=== PATIENT | male | born 1960 | race Caucasian/White ===

== ENCOUNTER 2018-09-21 09:42 | Outpatient (CLI) | payer OTHER ==
[~2018-09-21] VITALS: Ht 185.4 cm; Wt 49.9 kg
[2018-09-21 10:40] VITALS: BP 125/84
[2018-09-21] MEDS ORDERED: CREON DR 24,001 EACH PO (14:10)
[2018-09-21] MEDS ORDERED: BP MED (14:10)
--- NOTE | 2018-09-21 14:19 | General Progress Note ---
Assessment/Plan Assessment/Plan pancreatic mass ? type pending obtaining records Subjective ROS Limited/Unobtainable: Yes Allergies: Coded Allergies: No Known Allergies (Verified Allergy, Unknown, 03/08/09) Subjective abd pain Objective General Appearance: alert EENT: normal ENT inspection Neck: supple Cardiovascular: normal rate Respiratory/Chest: decreased breath sounds Abdomen: normal bowel sounds, non tender, soft Extremities: non-tender Darin Oshea MD Sep 21, 2018 14:19
[2018-09-22] MEDS ORDERED: ASPIRIN EC81 MG ORAL (07:50)
[2018-09-22] MEDS ORDERED: ENSURE LIQUID237 ML PO (07:50)
[2018-09-22] MEDS ORDERED: ZOFRAN4 M3 ORAL (07:50)
[2018-09-22] MEDS ORDERED: TRAMADOL HCL50 MG ORAL (07:50)
[2018-09-22] MEDS ORDERED: AMLODIPINE BESY10 MG ORAL (07:50)
[2018-09-22] MEDS ORDERED: DICYCLOMINE HCL10 MG PO (07:50)
[2018-09-22] MEDS ORDERED: LOSARTAN POTASS50 MG ORAL (07:50)
== END 2018-09-21 11:42 | disposition home or self-care (01) ==
LOC: PAN 09:42
DX: K86.9 Disease of pancreas, unspecified (principal); R10.9 Unspecified abdominal pain

== ENCOUNTER 2018-10-05 10:38 | Outpatient (CLI) | payer OTHER ==
[~2018-10-05 10:38] MED LIST: AMLODIPINE BESY10 MG ORAL; ASPIRIN EC81 MG ORAL; BP MED; CREON DR 24,001 EACH PO; DICYCLOMINE HCL10 MG PO; ENSURE LIQUID237 ML PO; LOSARTAN POTASS50 MG ORAL; TRAMADOL HCL50 MG ORAL; ZOFRAN4 M3 ORAL
--- NOTE | 2018-10-05 11:18 | General Progress Note ---
Assessment/Plan Problem List: (1) Chronic pancreatitis ICD Codes: K86.1 - Other chronic pancreatitis SNOMED: 351819464 (2) Pancreatic cyst ICD Codes: K86.2 - Cyst of pancreas SNOMED: 61381932 (3) Dilated cbd, acquired ICD Codes: K83.8 - Other specified diseases of biliary tract SNOMED: 438741361 Assessment/Plan needs EUS and FNA of pancreatic cystic lesions needs IGG 4 and abdullahi test on the procedure day cont creon may need ERCP will fu Subjective ROS Limited/Unobtainable: Yes Allergies: Coded Allergies: No Known Allergies (Verified Allergy, Unknown, 03/08/09) Objective General Appearance: alert EENT: normal ENT inspection Neck: supple Cardiovascular: normal rate Respiratory/Chest: lungs clear Abdomen: soft, hypoactive bowel sounds, tender Extremities: non-tender Darin Oshea MD Oct 05, 2018 11:18
[2018-10-05 12:43] VITALS: BP 142/82
== END 2018-10-05 15:27 | disposition home or self-care (01) ==
LOC: PAN 10:38
DX: K86.1 Other chronic pancreatitis (principal); K86.2 Cyst of pancreas; K83.8 Other specified diseases of biliary tract

== ENCOUNTER 2018-10-17 17:44 | Emergency (ER) | payer OTHER ==
[~2018-10-17] VITALS: Ht 185.4 cm; Wt 54.4 kg
--- NOTE | 2018-10-17 18:10 | NUR ---
ED Nurse Note: pt wheelchaired in c/o abd pain on RUQ, pt states he had pain for about 1yr and 7months, states worsen today and couldn't take it anymore came to ED, pt denies n/v/d at this time, pt reports he has hx mass and CA on pacreas, is scheduled for surgery this summer with . HX right ingroin hernia. ERMD at the bedside. Pt AA&ox4, gcs=15, skin warm and dry, resp even and unlabored on RA, noted tenderness on abd RUQ, active BS, pt on wheelchair for weakness but states he can ambulate, VSS, will cont monitor.
[2018-10-17 18:23] VITALS: BP 143/77
[2018-10-17] MEDS ORDERED: HYDROmorphone 1mg/ml Carpuject IM ONE (18:30)
[2018-10-17] MEDS ORDERED: TRAMADOL HCL50 MG ORAL (18:59)
--- NOTE | 2018-10-17 19:03 | NUR ---
ED Nurse Note: report given to ELIOT Jennings and endorsed care.
[2018-10-17 19:05] VITALS: BP 143/77
--- NOTE | 2018-10-17 19:05 | NUR ---
ER DISCHARGE NOTE: Patient is cleared to be discharged per ERMD, pt is aox4, on room air, with stable vital signs. accompanied by family member. pt was given dc and prescription instructions, pt was able to verbalize understanding, pt id band removed. pt is able to ambulate with cane and steady gait. pt took all belongings.
--- NOTE | 2018-10-17 19:56 | Emergency Room Report ---
History of Present Illness General Chief Complaint: Abdominal Pain Source: Patient Present Illness HPI 58-year-old male presents ED for evaluation. Complaining of abdominal pain. States that he has a history of pancreatic cancer and has had prior surgery for this. States that for the last few years he's been having increasing pain is been seen by his GI specialist Dr. Oshea. States that he ran out of his pain medication tramadol. States pain is typical of his normal pain. Dull, 8 out of 10, nonradiating. Denies fevers or chills. Denies chest pain shortness of breath. Denies nausea or vomiting. Denies any diarrhea. No other aggravating relieving factors. Denies any other associated symptoms Allergies: Coded Allergies: HYDROCHLOROTHIAZIDE (Verified Allergy, Unknown, 10/17/18) Patient History Past Medical History: HTN, other - pancreatic cancer Past Surgical History: none Pertinent Family History: none Social History: Denies: smoking, alcohol use, drug use Immunizations: UTD Reviewed Nursing Documentation: PMH: Agreed; PSxH: Agreed Nursing Documentation-PMH Past Medical History: No History, Except For Hx Cardiac Problems: Yes Hx Hypertension: Yes Hx Cancer: Yes Hx Gastrointestinal Problems: Yes Hx Neurological Problems: No Review of Systems All Other Systems: negative except mentioned in HPI Physical Exam Vital Signs Date Time Temp Pulse Resp B/P (MAP) Pulse Ox O2 Delivery O2 Flow Rate FiO2 10/17/18 17:55 98.4 71 16 139/91 98 Room Air Sp02 EP Interpretation: reviewed, normal General Appearance: alert, GCS 15, non-toxic, mild distress Head: normocephalic Eyes: bilateral eye normal inspection, bilateral eye PERRL ENT: normal ENT inspection Neck: normal inspection Respiratory: chest non-tender, lungs clear, normal breath sounds, speaking full sentences Cardiovascular #1: regular rate, rhythm, no edema Gastrointestinal: normal bowel sounds, soft, non-distended, no guarding, no rebound, tenderness - epigastric Rectal: deferred Genitourinary: no CVA tenderness Musculoskeletal: normal inspection Neurologic: alert, oriented x3, responsive, motor strength/tone normal, sensory intact, speech normal Psychiatric: normal inspection Skin: normal inspection Lymphatic: normal inspection Medical Decision Making Diagnostic Impression: Primary Impression: Chronic pancreatitis Qualified Codes: K86.1 - Other chronic pancreatitis ER Course Hospital Course 58-year-old M presents to ED with abdominal pain. h/o pancreatic cancer Differential diagnosis includes-appendicitis, cholecystitis, small bowel obstruction, gastritis, Clinical course Patient placed on stretcher. After initial history, exam reveals a middle-aged male in mild distress. Abdomen is soft but tender. No guarding or rebound. No rigidity. Patient states he does not want lab draw or CT scans at this point. States that he already is being scheduled for surgery. States that he needs to control the pain today until he can see his doctor Given Dilaudid IM here. On reassessment pain is improved. I agree provide him a short course of tramadol Dr oshea made aware. Safe for discharge with close outpatient follow-up I feel this is a highly complex case requiring extensive working including EKG/ Rhythm strip, Xray/CT/US, Blood/urine lab work, repeat exams while in ED, and administration of strong opiates/narcotics for pain control, admission to hospital or close patient follow up. Diagnosis - chronic pancreatitis Stable and discharged to home with Rx Tramadol. Followup with PMD/GI. Return to ED if symptoms recur or worsen Last Vital Signs Date Time Temp Pulse Resp B/P (MAP) Pulse Ox O2 Delivery O2 Flow Rate FiO2 10/17/18 19:05 98.4 70 16 143/77 100 Room Air Status: improved Disposition: HOME, SELF-CARE Condition: Stable Scripts Tramadol Hcl* (ULTRAM*) 50 Mg Tablet 50 MG ORAL Q6H PRN for For Pain, #10 TAB 0 Refills Prov: Lonny Dominguez MD 10/17/18 Referrals: aDrin Oshea MD Patient Instructions: Acute Pancreatitis, [id number] Lonny Dominguez MD Oct 17, 2018 19:56
== END 2018-10-17 19:15 | disposition home or self-care (01) ==
LOC: EMR 19:10
DX: K86.1 Other chronic pancreatitis (principal); Z85.07 Personal history of malignant neoplasm of pancreas; I10 Essential (primary) hypertension; Z88.8 Allergy status to other drugs, medicaments and biological substances
CPT/HCPCS: 96372; 99283; J1170

== ENCOUNTER 2018-11-25 09:49 | Day surgery (SDC) | payer OTHER ==
[~2018-11-25] VITALS: Ht 185.4 cm; Wt 54.4 kg
--- NOTE | 2018-11-25 07:25 | Anethesia Preoperative Eval ---
Anesthesia Pre-op PMH/ROS General Date of Evaluation: November 25, 2018 Time of Evaluation: 07:22 Anesthesiologist: manju ASA Score: ASA 3 Mallampati Score Class I : Soft palate, uvula, fauces, pillars visible Class II: Soft palate, uvula, fauces visible Class III: Soft palate, base of uvula visible Class IV: Only hard plate visible Mallampati Classification: Class II Surgeon: jared Diagnosis: malignant neoplasm of pancreas Surgical Procedure: eus w/ fna Anesthesia History: none Social History: current smoker Family History: no anesthesia problems Allergies: Coded Allergies: HYDROCHLOROTHIAZIDE (Verified Allergy, Unknown, 10/17/18) MORPHINE (Verified Adverse Reaction, Severe, "increased discomfort", ) Medications: see eMAR Patient NPO?: Yes Past Medical History Cardiovascular: Reports: HTN Gastrointestinal/Genitourinary: Reports: other - pancreatic cyst, dilated cbd, chronic pancreatitis PSxH Narrative: lap diana Anesthesia Pre-op Phys. Exam Physician Exam Last Vital Signs Date Time Temp Pulse Resp B/P (MAP) Pulse Ox O2 Delivery O2 Flow Rate FiO2 11/25/18 11:21 Room Air 11/25/18 10:34 98.4 73 20 116/78 97 Constitutional: NAD Neurologic: CN 2-12 intact Cardiovascular: RRR Respiratory: CTA Gastrointestinal: S/NT/ND Airway Exam Mallampati Score: Class II MO: limited Neck: flexible TMD: 2fb ROM: limited Anesthesia Pre-op A/P Studies Pre-op Studies: EKG - sinus rhythm with short pr Risk Assessment & Plan Assessment: asa3 Plan: mac Status Change Before Surgery: No Pre-Antibiotics Drug: Bertha Sánchez MD November 25, 2018 07:25
[~2018-11-25 09:49] MED LIST changes: +Atropine Inj 1mg/10ml Syr IV PRN; +DiphenhydrAMINE 50mg/ml Inj IVP PRN; +Midazolam 2mg/2ml Inj IVP PRN; +fentaNYL 100 mcg/2 mL IV PRN
[2018-11-25 10:34] VITALS: BP 116/78
[2018-11-25] MEDS ORDERED: DIAZEPAM2 MG ORAL (11:25)
[2018-11-25] MEDS ORDERED: Dilaudid PO (11:28)
[2018-11-25] MEDS ORDERED: LOSARTAN POTASS50 MG ORAL (11:28)
[2018-11-25] MEDS ORDERED: DICYCLOMINE HCL10 MG ORAL (11:29)
[2018-11-25] MEDS ORDERED: Propofol 200mg/20ml IV ONE (12:00)
[2018-11-25] MEDS ORDERED: Lidocaine 1% MPF 10mg/ml 5ml ONE (12:00)
--- NOTE | 2018-11-25 12:29 | Pre-Procedure Note/Attestation ---
Pre-Procedure Note/Attestation Complete Prior to Procedure Planned Procedure: not applicable Procedure Narrative: eus Indications for Procedure Pre-Operative Diagnosis: pancreatic mass Attestation I attest that I discussed the nature of the procedure; its benefits; risks and complications; and alternatives (and the risks and benefits of such alternatives ), prior to the procedure, with the patient (or the patient's legal entry level sales representative). I attest that, if there was a reasonable possibility of needing a blood transfusion, the patient (or the patient's legal entry level sales representative) was given the [facility] standardized written summary, pursuant to the Erick Shalom Blood Safety Act ([place] Health and Safety Code # 1645, as amended). I attest that I re-evaluated the patient just prior to the surgery and that there has been no change in the patient's H&P, except as documented below: Darin Oshea MD November 25, 2018 12:29
--- NOTE | 2018-11-25 12:30 | Short Stay Surgery H&P ---
History of Present Illness History of Present Illness Chief Complaint see recent office note HPI Adolfo Lock is a 58 year old male who was admitted on for Malignant Neoplasm Of Pancreas Patient History Allergies: Coded Allergies: HYDROCHLOROTHIAZIDE (Verified Allergy, Unknown, 10/17/18) MORPHINE (Verified Adverse Reaction, Severe, "increased discomfort", ) Medication History Scheduled Amlodipine Besylate* (Amlodipine Besylate*), 10 MG ORAL DAILY, (Reported) Aspirin Ec* (Aspirin Ec*), 81 MG ORAL DAILY, (Reported) Dicyclomine Hcl* (Dicyclomine Hcl*), 10 MG ORAL TID, (Reported) Lactose-Free Food (Ensure Liquid), 237 ML PO TID, (Reported) Lipase/Protease/Amylase (Creon Dr 24,000 Units Capsule), 1 EACH PO TID, ( Reported) Losartan Potassium* (Losartan Potassium*), 100 MG ORAL DAILY, (Reported) Losartan Potassium* (Losartan Potassium*), 100 MG ORAL DAILY, (Reported) Scheduled PRN Diazepam* (Diazepam*), 4 MG ORAL QHS PRN for ANXIETY, (Reported) Ondansetron* (Zofran*), 4 MG ORAL Q12HR PRN for Nausea & Vomiting, (Reported) Tramadol Hcl* (Ultram*), 50 MG ORAL Q12HR PRN for For Pain, (Reported) Tramadol Hcl* (Ultram*), 50 MG ORAL Q6H PRN for For Pain [Dilaudid], 2 MG PO Q6HR PRN for For Pain, (Reported) Physical Exam Vital Signs Last Vital Signs Date Time Temp Pulse Resp B/P (MAP) Pulse Ox O2 Delivery O2 Flow Rate FiO2 11/25/18 11:21 Room Air 11/25/18 10:34 98.4 73 20 116/78 97 Plan Attestation Are the patient's medical conditions optimized for surgery? Darin Oshea MD November 25, 2018 12:30
[2018-11-25] MEDS ORDERED: Heplock Flush 100 units/ml 3 ml syr ONE (12:50)
[2018-11-25 13:31] VITALS: BP 116/78
[2018-11-25 13:35] VITALS: BP 101/71
[2018-11-25 13:40] VITALS: BP 103/71
[2018-11-25 13:55] VITALS: BP_SYST 109; BP_SYST 96; BP_DIAS 75; BP_DIAS 77
[2018-11-25 14:15] VITALS: BP 107/76
--- NOTE | 2018-11-25 15:02 | Endoscopy Procedure Note ---
Endoscopy Procedure Note General Indication for Procedure: panc mass Procedures Performed: other - EUS Operative Findings/Diagnosis: same Specimen: yes Pt Tolerated Procedure Well: Yes Estimated Blood Loss: none Anesthesia Anesthesiologist: manju Anesthesia: MAC Inserted Devices Implant(s) used?: No GI Core Measures 50 yrs or older w/o bx or poly: Not Applicable 10yrs. F/U recommended: Not Applicable Darin Oshea MD November 25, 2018 15:02
--- NOTE | 2018-11-25 20:30 | Procedure Note ---
DATE OF PROCEDURE: 11/25/2018 SURGEON: Darin Oshea M.D. PROCEDURE: Endoscopic ultrasound with FNA. ANESTHESIA: Per Dr. Gillespie. INSTRUMENT: Olympus EUS scope. INDICATION: Pancreatic mass. REASON FOR PROCEDURE: The procedure, risks, benefits, and possible consequences, including hemorrhage, aspiration, perforation and infection, and alternative treatments, were explained to the patient/legal guardian by Dr. Darin Oshea and the patient/legal guardian understood and accepted these risks. DESCRIPTION OF PROCEDURE: After informed consent was obtained and the patient was adequately sedated, the EUS scope was advanced from mouth and second portion of duodenum and pancreatic parenchyma was carefully examined through the gastroduodenal mucosa. The patient did not have any evidence of extensive celiac artery lymphadenopathy. The patient has evidence of significant calcification in the pancreas suggestive of chronic pancreatitis in the body and also in the head of the pancreas. Gallbladder was seen without any obvious stone or sludge in it. Gallbladder was mildly distended. No common bile duct dilatation. As I mentioned, there was evidence of extensive calcifications throughout the pancreas. At this time, we introduced a linear scope and performed 2 FNAs in the head of the pancreas using a 22-gauge needle and some tissue was aspirated and sent to the pathologist. SUMMARY OF FINDINGS: This is a difficult examination. Given the patient had evidence of chronic pancreatitis, it was difficult to separate chronic pancreatitis from possibility of the mass, but we did FNA of the head x2. I will follow up with the pathology and make further recommendation based on that. Darin Oshea M.D. DR: BENITO JOB#: [id number] CC:
--- NOTE | 2018-12-01 14:50 | Cardiology Report ---
APPROVED REPORT EKG Measurement Heart [id number] [place] 108P7 [id number] Sinus rhythm with short AK Otherwise normal ECG
== END 2018-11-25 14:30 | disposition home or self-care (01) ==
LOC: GAS 09:49
DX: K86.9 Disease of pancreas, unspecified (principal); Z79.82 Long term (current) use of aspirin; Z79.899 Other long term (current) drug therapy; Z88.6 Allergy status to analgesic agent; I10 Essential (primary) hypertension; Z90.49 Acquired absence of other specified parts of digestive tract
CPT/HCPCS: 43238; 93005; J1642; J2704; Z7512; 94003; 94150

== ENCOUNTER 2018-12-06 12:53 | Outpatient (CLI) | payer OTHER ==
[~2018-12-06 12:53] MED LIST changes: -Atropine Inj 1mg/10ml Syr IV PRN; +DIAZEPAM2 MG ORAL; +DICYCLOMINE HCL10 MG ORAL; +Dilaudid PO; -DiphenhydrAMINE 50mg/ml Inj IVP PRN; -Midazolam 2mg/2ml Inj IVP PRN; -fentaNYL 100 mcg/2 mL IV PRN
--- NOTE | 2018-12-06 14:27 | General Progress Note ---
Assessment/Plan Problem List: (1) Chronic pancreatitis ICD Codes: K86.1 - Other chronic pancreatitis SNOMED: 884192457 (2) Dilated cbd, acquired ICD Codes: K83.8 - Other specified diseases of biliary tract SNOMED: 649197134 Assessment/Plan: biopsy reviewed with the patient increase creon to 2-3 tabs tid fu with Dr gutierrez, surgery Subjective ROS Limited/Unobtainable: Yes Allergies: Coded Allergies: HYDROCHLOROTHIAZIDE (Verified Allergy, Unknown, 10/17/18) MORPHINE (Verified Adverse Reaction, Severe, "increased discomfort", ) Objective General Appearance: alert EENT: normal ENT inspection Neck: normal alignment Cardiovascular: normal rate Respiratory/Chest: decreased breath sounds Abdomen: normal bowel sounds, non tender, soft Extremities: non-tender Darin Oshea MD Dec 06, 2018 14:27
== END 2018-12-06 14:53 | disposition home or self-care (01) ==
LOC: PAN 12:53
DX: K86.1 Other chronic pancreatitis (principal); K83.8 Other specified diseases of biliary tract; Z88.6 Allergy status to analgesic agent
CPT/HCPCS: 99212

== ENCOUNTER 2019-12-12 12:56 | Outpatient (CLI) | payer MEDICAID ==
[~2019-12-12 12:56] MED LIST changes: +OMEPRAZOLE40 M1 ORAL
== END 2019-12-12 14:56 | disposition home or self-care (01) ==
LOC: PAN 12:56
DX: R10.9 Unspecified abdominal pain (principal)
CPT/HCPCS: 99212

== ENCOUNTER → 2020-01-30 | Outpatient (CLI) | payer MEDICAID ==
[~2020-01-30] MED LIST changes: +CREON DR 12,001 EACH PO
[2020-01-30 13:13] VITALS: BP 106/66
--- NOTE | 2020-01-30 14:29 | General Progress Note ---
Assessment/Plan Assessment/Plan: Assessment/Plan Problem List: (1) Pancreatic cyst ICD Codes: K86.2 - Cyst of pancreas SNOMED: 32599943 (2) Chronic pancreatitis ICD Codes: K86.1 - Other chronic pancreatitis SNOMED: 234833899 (3) Dilated cbd, acquired ICD Codes: K83.8 - Other specified diseases of biliary tract SNOMED: 135706123 Assessment/Plan: s/p surgery doing better gaining weight on Creon to 2 tabs TID shaina off ppi fu surg recs Subjective ROS Limited/Unobtainable: Yes Allergies: Coded Allergies: HYDROCHLOROTHIAZIDE (Verified Allergy, Unknown, 10/17/18) MORPHINE (Verified Adverse Reaction, Severe, "increased discomfort", ) Objective Last 24 Hour Vital Signs Date Time Temp Pulse Resp B/P (MAP) Pulse Ox O2 Delivery O2 Flow Rate FiO2 01/30/20 13:13 98.0 86 16 106/66 (79) 98 General Appearance: alert EENT: normal ENT inspection Neck: supple Cardiovascular: normal rate, gallop/S3 Abdomen: normal bowel sounds, non tender, soft Extremities: non-tender Darin Oshea MD Jan 30, 2020 14:29
== END | disposition home or self-care (01) ==
LOC: PAN 12:48
DX: K86.2 Cyst of pancreas (principal); K86.1 Other chronic pancreatitis; K83.8 Other specified diseases of biliary tract; Z88.6 Allergy status to analgesic agent

== ENCOUNTER 2020-05-03 13:14 | Outpatient (CLI) | payer MEDICARE, MEDICAID ==
[2020-05-03 13:59] VITALS: BP 112/57
[2020-05-03] MEDS ORDERED: CREON DR 36,001 EACH PO (14:07)
--- NOTE | 2020-05-03 16:01 | General Progress Note ---
Subjective ROS Limited/Unobtainable: Yes Allergies: Coded Allergies: HYDROCHLOROTHIAZIDE (Verified Allergy, Unknown, 10/17/18) MORPHINE (Verified Adverse Reaction, Severe, "increased discomfort", 11/25/18) Objective Last 24 Hour Vital Signs Date Time Temp Pulse Resp B/P (MAP) Pulse Ox O2 Delivery O2 Flow Rate FiO2 05/03/20 13:59 98.0 70 18 112/57 98 General Appearance: alert EENT: PERRL/EOMI Neck: supple Cardiovascular: normal rate Respiratory/Chest: lungs clear Abdomen: normal bowel sounds, non tender, soft Extremities: non-tender Assessment/Plan Assessment/Plan: Assessment/Plan Problem List: (1) Pancreatic cyst ICD Codes: K86.2 - Cyst of pancreas SNOMED: 03762483 (2) Chronic pancreatitis ICD Codes: K86.1 - Other chronic pancreatitis SNOMED: 414789038 (3) Dilated cbd, acquired ICD Codes: K83.8 - Other specified diseases of biliary tract SNOMED: 063860529 Assessment/Plan: s/p surgery doing better gaining weight on Creon 36 to 2 tabs Darin Pérez MD May 03, 2020 16:01
== END 2020-05-03 15:14 | disposition home or self-care (01) ==
LOC: PAN 13:14
DX: K86.2 Cyst of pancreas (principal); K86.1 Other chronic pancreatitis; K83.8 Other specified diseases of biliary tract
CPT/HCPCS: 99212